=== PATIENT | female | born 1935 | race Caucasian/White ===

== ENCOUNTER → 2016-04-16 | Outpatient (CLI) | payer MEDICARE | LOC: BFHH 14:59 | PROVIDERS: ATTEND Family Medicine | DX: E11.51 Type 2 diabetes mellitus with diabetic peripheral angiopathy without gangrene (principal); E11.311 Type 2 diabetes mellitus with unspecified diabetic retinopathy with macular edema; E11.42 Type 2 diabetes mellitus with diabetic polyneuropathy; Z79.4 Long term (current) use of insulin ==

== ENCOUNTER 2016-05-28 23:44 | Observation (INO) | payer MEDICARE ==
--- NOTE | 2016-05-29 00:26 | ED.PDOC ---
History of Present Illness - General Chief Complaint: Diabetic Complaint Stated Complaint: low blood sugar Time Seen by Provider: 05/29/16 00:23 Source: patient, EMS Exam Limitations: no limitations - History of Present Illness Initial Comments: EMS stated that Ms.Cordie Bowman 80 y/o female with history of diabetes called up police with her medical alert button and on arrival of police she was noted laying on the floor unconscious so ems was then called finger stick blood sugar that was taken showed FSBS-39 mg /dl was found also to be diaphoretic,weak and pale.She was given one ampule of D50 then repeat FSBS-250mg/dl.Patient requested to be seen here at er.She stated she does not have the appetite the last 3 weeks and had just been eating only soup,yogurt and cheese and a lusterer just comes in in am and prepares breakfast for her cereals milk.On her arrival here at er via EMS she could not recall what happened. Timing/Duration: 1-3 hours Severity: moderate Improving Factors: nothing Worsening Factors: nothing Associated Symptoms: weakness Allergies/Adverse Reactions: Allergies Penicillins Allergy (Unknown, Verified 05/29/16 00:30) Statins Allergy (Unknown, Verified 05/29/16 00:30) Home Medications: Ambulatory Orders Donepezil HCl [Aricept] 1 tab PO DAILY 05/01/13 Lisinopril/Hctz 20-25 mg [Zestoretic 20-25 mg] 1 ea PO DAILY 05/01/13 Paroxetine HCl 20 mg PO DAILY 05/01/13 Tramadol HCl 50 mg PO Q4H PRN 05/01/13 Furosemide [Lasix] 40 mg PO BID #0 05/05/13 Albuterol Sulfate Nebs [Proventil Nebs] 2.5 mg INH QID PRN 06/10/15 Aspirin 325 mg PO QD 06/10/15 B-Complex W/Biotin & Folic Aci [Super B-Complex] 1 cap PO DAILY 06/10/15 Magnesium Hydroxide [Milk Of Magnesia] 30 ml PO DAILY PRN 06/10/15 Metformin HCl 1,000 mg PO BIDFD 06/10/15 Montelukast Sodium [Singulair] 10 mg PO DAILY 06/10/15 [place]-3 Fatty Acids [[place]-3 Fish Oil 1200 mg] 1 cap PO DAILY 06/10/15 Solifenacin Succinate [Vesicare] 10 mg PO DAILY 06/10/15 Insulin Aspart [Novolog] 0 unit SC DAILY PRN 01/25/16 Tiotropium [place]-Olodaterol [Stiolto Respimat 2.5-2.5 Mcg/Act] 2 aer IN DAILY 01/25/16 Insulin Degludec [Tresiba Flextouch] 50 unit SC QAM #0 01/27/16 Cholecalciferol [Vitamin D3] 2,000 unit PO DAILY 02/25/16 Multiple Vitamins W/ Minerals [Womens One Daily] 1 tab PO DAILY 02/25/16 Vitamin C 500 mg PO DAILY 02/25/16 diphenhydrAMINE HCL [Benadryl] 25 mg PO PRN 02/25/16 Calcium 1,200 mg PO DAILY 05/29/16 Esomeprazole Magnesium [Nexium] 40 mg PO DAILY 05/29/16 Propranolol HCl 10 mg PO DAILY 05/29/16 Review of Systems - Review of Systems Constitutional: States: see HPI, weakness EENTM: States: no symptoms reported Respiratory: States: no symptoms reported Cardiology: States: no symptoms reported Gastrointestinal/Abdominal: States: no symptoms reported Genitourinary: States: no symptoms reported Musculoskeletal: States: no symptoms reported Skin: States: no symptoms reported Neurological: States: no symptoms reported Endocrine: States: no symptoms reported Hematologic/Lymphatic: States: no symptoms reported Past Medical History (General) - Patient Medical History Hx Seizures: Yes Hx Stroke: Yes Hx Dementia: No Hx Asthma: Yes Hx of COPD: Yes Hx Cardiac Disorders: Yes - [place] Hx Congestive Heart Failure: Yes Hx Pacemaker: No Hx Hypertension: Yes Hx Thyroid Disease: No Hx Diabetes: Yes Hx Cancer: No Hx of HIV: No Hx Hepatitis C: No Hx MRSA: No Surgical History: appendectomy, cholecystectomy, other - hysterectomy, ,bilateral knee replacement - Vaccination History Hx Tetanus, Diphtheria Vaccination: No Hx Influenza Vaccination: Yes Hx Pneumococcal Vaccination: Yes - Social History Hx Tobacco Use: No Hx Chewing Tobacco Use: No Hx Alcohol Use: No Hx Substance Use: No Hx Substance Use Treatment: No Hx Depression: No Feels Threatened In Home Enviroment: No Hx Physical Abuse: No Hx Emotional Abuse: No - Activities of Daily Living Patient Lives Alone: Yes - house Home Health Agency (if applicable): [facility] Agency (if applicable):: None Grooming Ability: Independent Eating (Feeding) Ability: Independent Toileting Ability: Independent - Female History Patient : No Family Medical History - Family History Father Living Status: Hx Family Hypertension: Yes Hx Family Diabetes: Yes Daughter Living Status: Still Living Hx Family Asthma: Yes Hx Family Stroke: Yes Hx Family Cancer: Yes - breast Mother Family History: Unknown Living Status: Age at (years of age): 66 Cause of : CAD Hx Family Hypertension: Yes Physical Exam - Physical Exam General Appearance: Alert, No apparent distress Ears, Nose, Throat: hearing grossly normal, normal ENT inspection, normal pharynx Neck: non-tender, full range of motion, supple, normal inspection Respiratory: chest non-tender, lungs clear, normal breath sounds, no respiratory distress Cardiovascular/Chest: normal peripheral pulses, regular rate, rhythm, no edema, no gallop, no JVD, no murmur Peripheral Pulses: radial,right: 2+, radial,left: 2+, dorsalis pedis,right: 2+, dorsalis pedis,left: 2+ Gastrointestinal/Abdominal: normal bowel sounds, non tender, soft, no organomegaly Extremity: normal range of motion, non-tender, no pedal edema, no calf tenderness, normal capillary refill Neurologic: no motor/sensory deficits, oriented x 3 Skin Exam: normal color, warm/dry Progress - Results/Orders Results/Orders: 05/29/16 00:25 CBC (AUTOMATED) W/AUTO DIFF Stat URINALYSIS Stat 05/29/16 00:30 EKG STAT 05/29/16 02:35 Dex 5% W/NaCl 0.45% 1000ML [D5 1/2NS 1000ml] 1,000 ml IVS .QD Laboratory Results WBC 8.7 K/mm3 (4.8-10.8) 05/29/16 02:00 RBC 4.65 M/mm3 (4.20-5.40) 05/29/16 02:00 Hgb 12.7 gm/dL (12.0-16.0) 05/29/16 02:00 Hct 38.9 % (36.0-47.0) 05/29/16 02:00 MCV 83.7 fl (81.0-99.0) 05/29/16 02:00 MCH 27.2 pg (27.0-31.0) 05/29/16 02:00 MCHC 32.5 g/dL (33.0-37.0) L 05/29/16 02:00 RDW 16.4 % (11.5-14.5) H 05/29/16 02:00 Plt Count 203 K/mm3 (130-400) 05/29/16 02:00 MPV 7.7 fl (7.40-10.4) 05/29/16 02:00 Absolute Neuts (auto) 6.40 K/uL (1.8-6.8) 05/29/16 02:00 Absolute Lymphs (auto) 1.60 K/uL (1.0-3.4) 05/29/16 02:00 Absolute Monos (auto) 0.50 K/uL (0.2-0.8) 05/29/16 02:00 Absolute Eos (auto) 0.20 K/uL (0.0-0.4) 05/29/16 02:00 Absolute Basos (auto) 0.10 K/uL (0.0-0.1) 05/29/16 02:00 Neutrophils % 73.7 % (42.0-78.0) 05/29/16 02:00 Lymphocytes % 18.0 % (20.0-50.0) L 05/29/16 02:00 Monocytes % 5.4 % (2.0-9.0) 05/29/16 02:00 Eosinophils % 2.1 % (1.0-5.0) 05/29/16 02:00 Basophils % 0.8 % (0.0-2.0) 05/29/16 02:00 PT 12.4 SECONDS (9.4-12.5) 05/29/16 02:00 INR 1.100 05/29/16 02:00 PTT (SP) 40.6 SECONDS (25.1-36.5) H 05/29/16 02:00 Sodium 130 mmol/L (135-145) L 05/29/16 02:00 Potassium 3.4 mmol/L (3.6-5.0) L 05/29/16 02:00 Chloride 87 mmol/L (101-111) L 05/29/16 02:00 Carbon Dioxide 32 mmol/L (21-31) H 05/29/16 02:00 Anion Gap 14.4 (12-18) 05/29/16 02:00 BUN 17 mg/dL (7-18) 05/29/16 02:00 Creatinine 0.69 mg/dL (0.6-1.3) 05/29/16 02:00 BUN/Creatinine Ratio 24.6 (10-20) H 05/29/16 02:00 POC Glucose 124 mg/dL (70-105) H 05/29/16 00:21 Random Glucose 64 mg/dL (70-105) L 05/29/16 02:00 Serum Osmolality 260.4 mOsm/L (275-295) L 05/29/16 02:00 Calcium 9.8 mg/dL (8.4-10.2) 05/29/16 02:00 Magnesium 1.3 mg/dL (1.8-2.5) L 05/29/16 02:00 Total Bilirubin 0.9 mg/dL (0.2-1.0) 05/29/16 02:00 AST 31 IU/L (10-42) 05/29/16 02:00 ALT 15 IU/L (10-60) 05/29/16 02:00 Alkaline Phosphatase 63 IU/L (42-121) 05/29/16 02:00 Creatine Kinase 183 IU/L (26-140) H 05/29/16 02:00 CK-MB (CK-2) 9.0 ng/mL (0.0-4.4) H* 05/29/16 02:00 CK-MB (CK-2) % 4.92 % (0.0-4.3) H 05/29/16 02:00 Troponin I 0.02 ng/mL (0.01-0.05) 05/29/16 02:00 Serum Total Protein 8.5 gm/dL (6.4-8.2) H 05/29/16 02:00 Albumin 4.4 g/dl (3.2-5.5) 05/29/16 02:00 Globulin 4.1 gm/dL (2.3-3.5) H 05/29/16 02:00 Albumin/Globulin Ratio 1.1 (1.1-1.9) 05/29/16 02:00 Lipase 31 U/L (22-51) 05/29/16 02:00 - EKG/XRAY/CT EKG: Atrial, Fibrillation Comments: controlled ventricular rate 55/min Departure - Departure Clinical Impression: Altered awareness, transient, Hypoglycemia due to type 2 diabetes mellitus Time of Disposition: 02:56 - D/W 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 Copy, Patient Portal Self Enrollment Home Medications: Ambulatory Orders Donepezil HCl [Aricept] 1 tab PO DAILY 05/01/13 Lisinopril/Hctz 20-25 mg [Zestoretic 20-25 mg] 1 ea PO DAILY 05/01/13 Paroxetine HCl 20 mg PO DAILY 05/01/13 Tramadol HCl 50 mg PO Q4H PRN 05/01/13 Furosemide [Lasix] 40 mg PO BID #0 05/05/13 Albuterol Sulfate Nebs [Proventil Nebs] 2.5 mg INH QID PRN 06/10/15 Aspirin 325 mg PO QD 06/10/15 B-Complex W/Biotin & Folic Aci [Super B-Complex] 1 cap PO DAILY 06/10/15 Magnesium Hydroxide [Milk Of Magnesia] 30 ml PO DAILY PRN 06/10/15 Metformin HCl 1,000 mg PO BIDFD 06/10/15 Montelukast Sodium [Singulair] 10 mg PO DAILY 06/10/15 [place]-3 Fatty Acids [[place]-3 Fish Oil 1200 mg] 1 cap PO DAILY 06/10/15 Solifenacin Succinate [Vesicare] 10 mg PO DAILY 06/10/15 Insulin Aspart [Novolog] 0 unit SC DAILY PRN 01/25/16 Tiotropium [place]-Olodaterol [Stiolto Respimat 2.5-2.5 Mcg/Act] 2 aer IN DAILY 01/25/16 Insulin Degludec [Tresiba Flextouch] 50 unit SC QAM #0 01/27/16 Cholecalciferol [Vitamin D3] 2,000 unit PO DAILY 02/25/16 Multiple Vitamins W/ Minerals [Womens One Daily] 1 tab PO DAILY 02/25/16 Vitamin C 500 mg PO DAILY 02/25/16 diphenhydrAMINE HCL [Benadryl] 25 mg PO PRN 02/25/16 Calcium 1,200 mg PO DAILY 05/29/16 Esomeprazole Magnesium [Nexium] 40 mg PO DAILY 05/29/16 Propranolol HCl 10 mg PO DAILY 05/29/16
[2016-05-29] MEDS ORDERED: SODIUM CHLORIDE 0.9% 500ML 500 ML IVS ONE (00:27)
[2016-05-29] MEDS: DEX 5% W/NACL 0.45% 1000ML 1,000 ML IVS PRN ×3 (02:44→15:53)
--- NOTE | 2016-05-29 03:01 | HP ---
SUPERVISING PHYSICIAN: Cortez Chan M.D. CHIEF COMPLAINT: Low blood sugar. HISTORY OF PRESENT ILLNESS: This is an 80 year-old female patient with a history of diabetes that called the police on her Medic Alert button and when the police arrived to her house she was on the floor unconscious. Her finger stick blood sugars was taken and it was 39. She was also diaphoretic, weak and pale. She was given an amp of D50 and then the repeat blood sugar was 250. She was brought to the Emergency Room. She said she has not had a very good appetite lately and she has not eaten very much over the last several days, and she just had a little bit of soup last night. In the Emergency Room, sodium was 130, potassium 3.4, chloride 87, carbon dioxide 32, BUN 17, creatinine 0.69 , creatinine kinase 183, CK-MB 9. CBC was basically within normal limits. Urine had a trace of leukocyte esterase and some WBCs. Urine WBCs were 5 to 10 with a small amount of urine blood. The patient was admitted to the hospital for observation for hypoglycemia. PAST MEDICAL HISTORY: 1. Chronic diastolic congestive heart failure with an ejection fraction of 55 % from 01/04/15. 2. History of coronary artery disease. 3. Chronic obstructive pulmonary disease. 4. Hypertension. 5. Hyperlipidemia. 6. Generalized arthritis. 7. Type 2 diabetes mellitus on Metformin and Tresiba. 8. History of cerebrovascular accident times three. 9. Iron deficiency anemia. 10. Hyperbilirubinemia. 11. History of myocardial infarction. 12. Peripheral vascular disease. PAST SURGICAL HISTORY: 1. Knee replacement times two. 2. Appendectomy. 3. Cholecystectomy. 4. Hysterectomy. CURRENT MEDICATIONS: Per the EMR and awaiting verification. ALLERGIES: PENICILLINS AND STATINS. CODE STATUS: FULL CODE. FAMILY HISTORY: Noncontributory. SOCIAL HISTORY: She denies any tobacco or illicit drug use. She occasionally drinks an alcoholic beverage. She lives alone. 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 REVIEW OF SYSTEMS: Complains of fatigue. Denies any fever or chills. HEENT: Denies sinus symptoms, sore throat, ear pain or vision changes. RESPIRATORY: Denies coughing, wheezing or shortness of breath. CARDIAC: Denies chest pain, tachycardia or palpitations. ABDOMEN: Denies nausea, vomiting or diarrhea, constipation or abdominal pain. GENITOURINARY: Denies dysuria, hematuria or polyuria. NEUROLOGIC: She complains of weakness but denies dizziness, seizures or headaches. MUSCULOSKELETAL: Complains of arthralgias. Denies myalgias. EXTREMITIES: Denies any edema. SKIN: Denies lesions or rashes. PHYSICAL EXAMINATION: VITAL SIGNS: She is afebrile, heart rate 61, blood pressure 131/67, respiratory rate 18, O2 sat is 94% on 2 liters nasal cannula. GENERAL: This is an 80 year-old female patient who is lying in her hospital bed. She is in no acute distress. HEENT: Normocephalic and atraumatic. Pupils are equal and reactive. Oropharynx is clear. Oral mucous membranes are moist. NECK: Supple without mass. There is no jugular venous distention. CHEST: Essentially clear to auscultation, somewhat diminished at the bases. There is equal rise and fall of the chest with inspiration and expiration. CARDIOVASCULAR: Regular rate and rhythm. ABDOMEN: Soft, obese, nondistended, non-tender. Bowel sounds are positive. EXTREMITIES: No cyanosis, clubbing or edema. NEUROLOGIC: The patient is awake, alert and oriented times three. LABORATORY: As per the History of Present Illness. ASSESSMENT: 1. Hypoglycemia. 2. Diabetes mellitus type 2 presently on Tresiba and Metformin. 3. Altered mental status most likely secondary to number 1. 4. History of congestive heart failure. 5. History of hypertension. 6. Generalized arthritis. PLAN: We will admit the patient for observation. We will monitor her blood sugars. I have spoken with her primary care physician, Dr. Esquivel, and we will decrease her Tresiba from 50 units in the morning to 40 units in the morning. I will also restart her home medications. I will repeat her lab in the morning. Most likely she can be discharged tomorrow if her labs are okay. I will probably sent her home on a lower dose of the Tresiba as she has had a previous hospital admission for the same thing several months ago. Otherwise we will continue to monitor the patient closely and followup as needed. Dr. Chan is the collaborating physician available for consultation. #[id number] [facility]
[2016-05-29] MEDS ORDERED: DEXTROSE 50% 25 GM/50 ML SYG IV PRN ×2 (03:36→20:38)
[2016-05-29] MEDS ORDERED: SODIUM CHLORIDE 0.9% 10 ML VIAL IV PRN (13:06)
[2016-05-29] MEDS ORDERED: SODIUM CHLORIDE 0.9% (FLUSH) 10 ML SYG IV PRN (13:06)
[2016-05-29] MEDS: FUROSEMIDE 40 MG TAB PO SCH (17:18)
[2016-05-29] MEDS: metFORMIN HCL 500 MG TAB PO SCH (20:05)
[2016-05-29] MEDS ORDERED: OMEPRAZOLE CAP 20 MG CAP ONE (20:13)
[2016-05-29] MEDS ORDERED: INSULIN LISPRO 100 UNITS/ML PEN SUBCU ONE (20:13)
[2016-05-29] MEDS ORDERED: GLUCAGON INJ 1 MG VIAL SUBCU PRN (20:38)
[2016-05-29] MEDS: MONTELUKAST SODIUM 10 MG TAB PO SCH (21:12)
[2016-05-29] MEDS: INSULIN LISPRO 100 UNITS/ML PEN SUBCU SCH (21:12)
[2016-05-30] MEDS: ACETAMINOPHEN 325 MG TAB PO PRN ×2 (02:24→18:05)
[2016-05-30] MEDS ORDERED: LISINOPRIL 10 MG TAB ONE (05:29)
[2016-05-30] MEDS ORDERED: TOLTERODINE TARTRATE ER 4 MG CAP PO ONE (05:29)
[2016-05-30] MEDS ORDERED: PARoxetine HCL 20 MG TAB PO ONE (05:30)
[2016-05-30] MEDS ORDERED: DONEPEZIL HCL 5 MG TAB ONE (05:30)
[2016-05-30] MEDS ORDERED: PROPRANOLOL HCL 20 MG TAB ONE (05:30)
[2016-05-30] MEDS ORDERED: hydroCHLOROthiazide 25 MG TAB ONE (05:30)
[2016-05-30] MEDS: OMEPRAZOLE CAP 20 MG CAP PO SCH (06:08)
[2016-05-30] MEDS: INSULIN LISPRO 100 UNITS/ML PEN SUBCU SCH ×4 (07:10→21:22)
[2016-05-30] MEDS: metFORMIN HCL 500 MG TAB PO SCH ×2 (07:54→17:19)
[2016-05-30] MEDS ORDERED: LISINOPRIL PO SCH (09:00)
[2016-05-30] MEDS ORDERED: IV SET AND CAP CHANGE INJ INJ SCH (09:00)
[2016-05-30] MEDS ORDERED: INSULIN DEGLUDEC 40 UNIT SC SCH (09:00)
[2016-05-30] MEDS ORDERED: HCTZ PO SCH (09:00)
[2016-05-30] MEDS ORDERED: NON-FORMULARY MEDICATION 1 EA MIS (Solifenacin Succinate [Vesicare] 10 MG) PO SCH (09:00)
[2016-05-30] MEDS ORDERED: NON-FORMULARY MEDICATION 1 EA MIS (Esomeprazole Magnesium [Nexium] 40 MG) PO SCH (09:00)
[2016-05-30] MEDS: PROPRANOLOL HCL 20 MG TAB PO SCH (09:06)
[2016-05-30] MEDS: hydroCHLOROthiazide 25 MG TAB PO SCH (09:07)
[2016-05-30] MEDS: TOLTERODINE TARTRATE ER 4 MG CAP PO SCH (09:07)
[2016-05-30] MEDS: FUROSEMIDE 40 MG TAB PO SCH ×2 (09:07→17:19)
[2016-05-30] MEDS: LISINOPRIL 10 MG TAB PO SCH (09:07)
[2016-05-30] MEDS: PARoxetine HCL 20 MG TAB PO SCH (09:07)
[2016-05-30] MEDS: SODIUM CHLORIDE 0.9% (FLUSH) 10 ML SYG IV SCH ×2 (09:08→20:46)
[2016-05-30] MEDS: DONEPEZIL HCL 5 MG TAB PO SCH (09:19)
--- NOTE | 2016-05-30 13:37 | PN ---
DATE: 05/30/16 SUPERVISING PHYSICIAN: Cortez Chan M.D. SUBJECTIVE: The patient is sitting up in her hospital bed. She is visiting with her daughter. She has no complaints of chest pain, shortness of breath, nausea or vomiting, diarrhea or constipation, dizziness or weakness. Her daughter reports that she is much more alert and is concerned somewhat that since she started the Tresiba her blood sugars have been lower than normal in spite of decreasing the dosage. OBJECTIVE: VITAL SIGNS: She is afebrile, blood pressure 133/71, heart rate 71 , respiratory rate 18, O2 sat 93%. RESPIRATORY: She is essentially clear to auscultation bilaterally. CARDIAC: Regular rate and rhythm. ABDOMEN: Soft, nondistended, non-tender. Bowel sounds are positive. EXTREMITIES: No cyanosis , clubbing or edema. SKIN: She does have a slightly ecchymotic bruise on her right lower eyelid. She states she does not remember hitting her head but it is very slightly ecchymotic along the lower right cheek bone. NEUROLOGIC: She is awake, alert and oriented times three. LABORATORY: CBC is basically within normal limits. Sodium 128, potassium 3.6, chloride 88. Blood sugars have run between 111 and 275. All other labs and films have been reviewed via the EMR. ASSESSMENT: 1. Hypoglycemia that is resolved. 2. Hyponatremia. 3. Diabetes mellitus type 2 presently on Tresiba and Metformin. 4. Altered mental status most likely secondary to number 1 but the hyponatremia may have contributed. 5. History of congestive heart failure of unknown etiology. 6. History of hypertension. 7. Generalized arthritis. PLAN: We will continue present care. I have decreased her Tresiba to 40 units every morning. She had been getting 50. I have also placed her on fluid restriction. We will monitor her sugars overnight. I will check her labs in the morning and if at that point she can be discharged with close followup in the clinic with either me or Dr. Esquivel. We will need chemistries done when she has her followup. Dr. Chan is the collaborating physician available fo consultation. #[id number] [facility]ITAL[facility]ly[facility]
[2016-05-30] MEDS: NON-FORMULARY MEDICATION 1 EA MIS (Tiotropium Bromide-Olodaterol [Stiolto Respimat 2.5-2.5 INH SCH (17:38)
--- NOTE | 2016-05-30 18:41 | PCM.CORE ---
Physician DVT/VTE - Nurse DVT Assessment & Total Each Risk Factor Represents 3 Points: Age over 75 years, Hx of DVT/PE, Medical PT with Hx of PR, CHF, Severe infection/sepsis Each Risk Factor Represents 1 Point: Medical PT at Bed Rest Each Risk Factor is 1 Point: Varicose Veins/Edema Legs, Obesity (BMI >25), Serious Lung disease (pnemonia <1month, COPD, emphysema,etc) DVT Assessment Score: 13 - 5 or more Very High Risk Treatments: Early Ambulation *, Sequential Compression Device Pharmacological: Enoxaparin 40mg SQ Daily
[2016-05-30] MEDS: MONTELUKAST SODIUM 10 MG TAB PO SCH (20:45)
[2016-05-31] MEDS: OMEPRAZOLE CAP 20 MG CAP PO SCH (06:05)
[2016-05-31] MEDS: INSULIN LISPRO 100 UNITS/ML PEN SUBCU SCH ×2 (07:36→12:14)
[2016-05-31] MEDS: metFORMIN HCL 500 MG TAB PO SCH (07:46)
[2016-05-31] MEDS ORDERED: INSULIN DEGLUDEC 35 UNIT SC SCH (08:23)
[2016-05-31] MEDS: PROPRANOLOL HCL 20 MG TAB PO SCH (08:36)
[2016-05-31] MEDS: DONEPEZIL HCL 5 MG TAB PO SCH (08:37)
[2016-05-31] MEDS: PARoxetine HCL 20 MG TAB PO SCH (08:37)
[2016-05-31] MEDS: FUROSEMIDE 40 MG TAB PO SCH (08:37)
[2016-05-31] MEDS: LISINOPRIL 10 MG TAB PO SCH (08:38)
[2016-05-31] MEDS: TOLTERODINE TARTRATE ER 4 MG CAP PO SCH (08:38)
[2016-05-31] MEDS: hydroCHLOROthiazide 25 MG TAB PO SCH (08:38)
[2016-05-31] MEDS ORDERED: INSULIN DEGLUDEC 34 UNIT SC SCH (08:59)
[2016-05-31] MEDS: SODIUM CHLORIDE 0.9% (FLUSH) 10 ML SYG IV SCH (09:10)
[2016-05-31] MEDS: NON-FORMULARY MEDICATION 1 EA MIS (Tiotropium Bromide-Olodaterol [Stiolto Respimat 2.5-2.5 INH SCH (10:04)
[2016-05-31] MEDS ORDERED: NYSTATIN POWDER 15GM BTTL TOP ONE (13:14)
[2016-05-31 14:49] VITALS: BP 107/73; TEMP 97.9; O2SAT 96
[2016-05-31] MEDS ORDERED: NYSTATIN POWDER 15GM BTTL TOP SCH (17:00)
--- NOTE | 2016-05-31 17:12 | DS ---
DISCHARGE DIAGNOSIS: 1. Significant hypoglycemic episode symptomatic with altered level of consciousness. 2. Significant hyponatremia possibly related to free water overload from polydipsia with supportive intervention started. 3. Chronic diabetes mellitus type 2 on Tresiba insulin once daily and Metformin for control. 4. Altered mental status most likely secondary to significant hypoglycemia with associated hyponatremia showing improvement. 5. History of congestive heart failure of undetermined etiology. 6. History of hypertension. 7. History of generalized arthritis probable degenerative in nature. HISTORY OF PRESENT ILLNESS: This 80 year-old white female was admitted to the hospital because of fairly sudden loss of consciousness. She pressed her Medic Alert button before she lost consciousness completely and when the police and EMS found her, she was on the floor unconscious. Her sugar was in the 30s and she required an amp of D50 and repeat blood sugar was 250. She was brought to the Emergency Room and was admitted to the hospital where she was found to also have a significantly low sodium requiring intervention with fluid restrictions and gentle diuresis. She had a urine that showed some evidence of pyuria and she was admitted to the hospital for stabilization of the diabetes and for alteration of her dosing to assist with improved control of that diabetes. LABORATORY: White count was 6,000 on discharge, hemoglobin 10.3, INR of 1.1. Chemistries show sodium 127, potassium 3.7, BUN 15, creatinine 0.89. Fasting glucose was 142 at discharge while serum osmolality was low at 258. Magnesium was 1.3. Troponin was 0.02. CK was 183 possibly from lying on the floor. Albumin 4.4. Urine shows hematuria and pyuria. Urine culture revealed no growth after 48 hours. HOSPITAL COURSE: The patient was feeling much improved at the time of discharge. Her appetite is significantly increased. Her Tresiba concentrated long-acting insulin dose had dropped from 50 to 40 by the day prior to discharge and on the day of discharge it was down to 34 units. This dosage of insulin will need to be adjusted based upon her ongoing diabetic management decision process. PLAN: The patient was very much ready and willing to continue with outpatient therapy on the day of discharge. She will have followup with Dr. Esquivel or with Lu Castillo, Nurse Practitioner, later this week. She is to closely monitor and adjust the Tresiba insulin to control the diabetes. Start with 34 units every morning and then adjust to control glucose with Dr. Esquivel's input. Limit the intake of water to less than 1-1/2 quarts daily in an attempt to increase the salt in the blood. Have the blood tested for electrolytes at her next clinic visit. Stay active. Special attention to avoid falls. Return if not improving. #[id number] MTDD
== END 2016-05-31 15:35 | disposition home or self-care (01) ==
LOC: ER 23:44 → MS 05-29 03:00
PROVIDERS: ADMIT Family Medicine; ATTEND Family Medicine
DX: E11.649 Type 2 diabetes mellitus with hypoglycemia without coma (principal); E87.1 Hypo-osmolality and hyponatremia; R41.82 Altered mental status, unspecified; I50.32 Chronic diastolic (congestive) heart failure; I10 Essential (primary) hypertension; M19.90 Unspecified osteoarthritis, unspecified site; I25.10 Atherosclerotic heart disease of native coronary artery without angina pectoris; J44.9 Chronic obstructive pulmonary disease, unspecified; E78.5 Hyperlipidemia, unspecified; I25.2 Old myocardial infarction; I73.9 Peripheral vascular disease, unspecified; Z79.4 Long term (current) use of insulin; Z79.84 Long term (current) use of oral hypoglycemic drugs; Z79.82 Long term (current) use of aspirin; Z79.899 Other long term (current) drug therapy; Z88.0 Allergy status to penicillin; Z88.8 Allergy status to other drugs, medicaments and biological substances; Z86.73 Personal history of transient ischemic attack (TIA), and cerebral infarction without residual deficits; Z86.2 Personal history of diseases of the blood and blood-forming organs and certain disorders involving the immune mechanism; Z90.49 Acquired absence of other specified parts of digestive tract; Z90.710 Acquired absence of both cervix and uterus; Z60.2 Problems related to living alone
CPT/HCPCS: 36415 ×3; 36416 ×7; 80048 ×3; 80053; 81001; 82550; 82553; 82947; 82948 ×14; 83690; 84484; 85025 ×2; 85610; 85730; 87086; 93005; 94760 ×6; 96361 ×2; 96372 ×2; 96374; 99284; J1815; J7040; J7799 ×3

== ENCOUNTER 2016-06-04 14:31 | Inpatient (IN) | payer MEDICARE ==
[2016-06-04] MEDS ORDERED: SODIUM CHLORIDE 0.9% (FLUSH) 10 ML SYG IV PRN (15:27)
--- NOTE | 2016-06-04 16:52 | RAD ---
EXAM DESCRIPTION: Chest,1 View CLINICAL HISTORY: weakness COMPARISON: 26 February 2016 TECHNIQUE: AP portable chest FINDINGS: Cardiomegaly is evident. Mitral annular calcification is noted. The lungs are free of acute infiltrate. No pleural fluid is seen. IMPRESSION: Cardiomegaly is observed without evidence of congestive heart failure. I see no acute cardiac pulmonary pathology. Electronically signed by: Rodolfo Castillo MD 06/04/2016 4:51 PM [employer]PERATIONS EXPERT
--- NOTE | 2016-06-04 18:41 | ED.PDOC ---
History of Present Illness - General Chief Complaint: General Stated Complaint: weakness Time Seen by Provider: 06/04/16 15:26 Source: patient Exam Limitations: no limitations - History of Present Illness Initial Comments: 80 YO FEMALE WHO PRESENTS TO THE ED WITH COMPLAINTS OF GENERALIZED WEAKNESS AND CHRONIC BACK PAIN. PT LIVES AT HOME ALONE AND FEELS THAT SHE IS UNABLE TO CARE FOR HERSELF DUE TO SYMPTOMS. PT WAS RECENTLY ADMITTED FOR HYPOGLYCEMIA AND HYPONATREMIA AND STATES THAT SHE HAS BEEN IN COMPLIANCE WITH FLUID RESTRICTION. Timing/Duration: getting worse Severity: moderate Improving Factors: immobilization Worsening Factors: movement Associated Symptoms: weakness Allergies/Adverse Reactions: Allergies Penicillins Allergy (Unknown, Verified 05/29/16 00:30) Statins Allergy (Unknown, Verified 05/29/16 00:30) Home Medications: Ambulatory Orders Donepezil HCl [Aricept] 1 tab PO DAILY 05/01/13 Lisinopril/Hctz 20-25 mg [Zestoretic 20-25 mg] 1 ea PO DAILY 05/01/13 Paroxetine HCl 20 mg PO DAILY 05/01/13 Tramadol HCl 50 mg PO Q4H PRN 05/01/13 Furosemide [Lasix] 40 mg PO BID #0 05/05/13 Albuterol Sulfate Nebs [Proventil Nebs] 2.5 mg INH QID PRN 06/10/15 Aspirin 325 mg PO QD 06/10/15 B-Complex W/Biotin & Folic Aci [Super B-Complex] 1 cap PO DAILY 06/10/15 Magnesium Hydroxide [Milk Of Magnesia] 30 ml PO DAILY PRN 06/10/15 Metformin HCl 1,000 mg PO BIDFD 06/10/15 Montelukast Sodium [Singulair] 10 mg PO DAILY 06/10/15 Sadler-3 Fatty Acids [Sadler-3 Fish Oil 1200 mg] 1 cap PO DAILY 06/10/15 Solifenacin Succinate [Vesicare] 10 mg PO DAILY 06/10/15 Insulin Aspart [Novolog] 0 unit SC DAILY PRN 01/25/16 Tiotropium [place]-Olodaterol [Stiolto Respimat 2.5-2.5 Mcg/Act] 2 aer IN DAILY 01/25/16 Cholecalciferol [Vitamin D3] 2,000 unit PO DAILY 02/25/16 Multiple Vitamins W/ Minerals [Womens One Daily] 1 tab PO DAILY 02/25/16 Vitamin C 500 mg PO DAILY 02/25/16 diphenhydrAMINE HCL [Benadryl] 25 mg PO PRN 02/25/16 Calcium 1,200 mg PO DAILY 05/29/16 Esomeprazole Magnesium [Nexium] 40 mg PO DAILY 05/29/16 Propranolol HCl 10 mg PO DAILY 05/29/16 Insulin Degludec [Tresiba Flextouch] 34 unit SC QAM #0 05/31/16 Review of Systems - Review of Systems Constitutional: States: malaise. Denies: chills, fever EENTM: Denies: ear pain, throat pain Respiratory: Denies: cough, short of breath Cardiology: Denies: chest pain, palpitations Gastrointestinal/Abdominal: Denies: diarrhea, nausea Genitourinary: Denies: dysuria, frequency Musculoskeletal: States: see HPI, back pain. Denies: joint pain, joint swelling Neurological: States: see HPI, weakness. Denies: numbness, paresthesia Endocrine: States: no symptoms reported Hematologic/Lymphatic: States: no symptoms reported Past Medical History (General) - Patient Medical History Hx Seizures: Yes Hx Stroke: Yes Hx Dementia: No Hx Asthma: Yes Hx of COPD: Yes Hx Cardiac Disorders: Yes - [place] Hx Congestive Heart Failure: Yes Hx Pacemaker: No Hx Hypertension: Yes Hx Thyroid Disease: No Hx Diabetes: Yes Hx Cancer: No Hx of HIV: No Hx Hepatitis C: No Hx MRSA: No Surgical History: appendectomy, cholecystectomy, other - Vaccination History Hx Tetanus, Diphtheria Vaccination: No Hx Influenza Vaccination: Yes Hx Pneumococcal Vaccination: Yes - Social History Hx Tobacco Use: No Hx Chewing Tobacco Use: No Hx Alcohol Use: No Hx Substance Use: No Hx Substance Use Treatment: No Hx Depression: No Hx Physical Abuse: No Hx Emotional Abuse: No - Female History Patient : No Family Medical History - Family History Father Living Status: Hx Family Hypertension: Yes Hx Family Diabetes: Yes Daughter Living Status: Still Living Hx Family Asthma: Yes Hx Family Stroke: Yes Hx Family Cancer: Yes - breast Mother Family History: Unknown Living Status: Age at (years of age): 66 Cause of : CAD Hx Family Hypertension: Yes Physical Exam - Physical Exam General Appearance: Alert, Comfortable, No apparent distress Ears, Nose, Throat: hearing grossly normal, normal ENT inspection Neck: non-tender, full range of motion Respiratory: lungs clear, normal breath sounds Cardiovascular/Chest: regular rate, rhythm, no murmur Gastrointestinal/Abdominal: normal bowel sounds, non tender, soft Back Exam: normal inspection, no CVA tenderness Extremity: non-tender, normal inspection Neurologic: alert, normal mood/affect, oriented x 3 Skin Exam: normal color, warm/dry Progress - Progress Progress: 06/04/16 18:46 PT RESTING COMFORTABLY LABS DISCUSSED. WITH ADMIT FOR POSSIBLE REHAB/HALFWAY PLACEMENT. - EKG/XRAY/CT EKG: Fibrillation - 78BPM, , RBBB - NL AXIS, , no ST T wave changes - COMPARED WITH 05/29/16 Xray Comments: CXR: CARDIOMEGALY WITHOUT FAILURE PER RAD Departure - Departure Clinical Impression: Hyponatremia, Generalized weakness, Failure to thrive in adult Time of Disposition: 18:49 Disposition: Admit Patient Condition: Fair Departure Forms: ED Discharge - Pt. Copy, Patient Portal Self Enrollment Home Medications: Ambulatory Orders Donepezil HCl [Aricept] 1 tab PO DAILY 05/01/13 Lisinopril/Hctz 20-25 mg [Zestoretic 20-25 mg] 1 ea PO DAILY 05/01/13 Paroxetine HCl 20 mg PO DAILY 05/01/13 Tramadol HCl 50 mg PO Q4H PRN 05/01/13 Furosemide [Lasix] 40 mg PO BID #0 05/05/13 Albuterol Sulfate Nebs [Proventil Nebs] 2.5 mg INH QID PRN 06/10/15 Aspirin 325 mg PO QD 06/10/15 B-Complex W/Biotin & Folic Aci [Super B-Complex] 1 cap PO DAILY 06/10/15 Magnesium Hydroxide [Milk Of Magnesia] 30 ml PO DAILY PRN 06/10/15 Metformin HCl 1,000 mg PO BIDFD 06/10/15 Montelukast Sodium [Singulair] 10 mg PO DAILY 06/10/15 Sadler-3 Fatty Acids [Sadler-3 Fish Oil 1200 mg] 1 cap PO DAILY 06/10/15 Solifenacin Succinate [Vesicare] 10 mg PO DAILY 06/10/15 Insulin Aspart [Novolog] 0 unit SC DAILY PRN 01/25/16 Tiotropium [place]-Olodaterol [Stiolto Respimat 2.5-2.5 Mcg/Act] 2 aer IN DAILY 01/25/16 Cholecalciferol [Vitamin D3] 2,000 unit PO DAILY 02/25/16 Multiple Vitamins W/ Minerals [Womens One Daily] 1 tab PO DAILY 02/25/16 Vitamin C 500 mg PO DAILY 02/25/16 diphenhydrAMINE HCL [Benadryl] 25 mg PO PRN 02/25/16 Calcium 1,200 mg PO DAILY 05/29/16 Esomeprazole Magnesium [Nexium] 40 mg PO DAILY 05/29/16 Propranolol HCl 10 mg PO DAILY 05/29/16 Insulin Degludec [Tresiba Flextouch] 34 unit IN QAM #0 05/31/16 Decision To Admit - Decistion To Admit Decision to Admit Reason: Admit from ER Decision to Admit Date: 06/04/16 - CASE DISCUSSED WITH JESSE OCASIO NP WHO AGREES TO ADMIT Decision to Admit Time: 18:50
--- NOTE | 2016-06-04 21:27 | HP ---
SUPERVISING PHYSICIAN: KEVIN WASSERMAN MD CHIEF COMPLAINT: Extreme weakness. HISTORY OF PRESENT ILLNESS: This is an 80 year-old female patient who presented to the Emergency Room today with complaints of generalized weakness and chronic back pain. She lives at home alone. Today, she said she could not even get up to get to the bathroom by herself. She is legally blind and she hurt all over. She said she could not even get herself up to use her walker and she was actually very scared. She stated she cannot get her walker into her bathroom and she is completely unable to take care of herself. Last week she was actually admitted to the hospital for a hypoglycemic event and she had been admitted to the hospital. She has been admitted to the hospital for multiple falls over the past year. In the Emergency Room, her chest x-ray shows cardiomegaly without evidence of congestive heart failure and no cardiac pulmonary pathology. Her lab showed a hemoglobin of 11.2 and hematocrit of 34.6. Her sodium was 126 , chloride 83, anion gap 19.1, random glucose 115. Serum osmolality 255.1, direct bilirubin 0.3, AST 44. Her urine was basically within normal limits. I was called for hospital admission. PAST MEDICAL HISTORY: 1. Chronic diastolic congestive heart failure with an ejection fraction of 55% from 01/04/15. 2. Coronary artery disease. 3. Chronic obstructive pulmonary disease. 4. Hypertension. 5. Hyperlipidemia. 6. Generalized arthritis. 7. Type 2 diabetes mellitus on metformin and Tresiba. 8. History of cerebrovascular accident x3. 9. Iron-deficiency anemia. 10. Hyperbilirubinemia. 11. History of myocardial infarction. 12. Peripheral vascular disease. PAST SURGICAL HISTORY: 1, Knee replacement x2. 2. Appendectomy. 3. Cholecystectomy. 4. Hysterectomy. CURRENT MEDICATIONS: Per the EMR and awaiting verification. ALLERGIES: PENICILLIN AND STATINS. CODE STATUS: FULL CODE. FAMILY HISTORY: Noncontributory. SOCIAL HISTORY: She lives alone. She denies any ETOH or tobacco use. She has been on [facility]. REVIEW OF SYSTEMS: GENERAL: She complains of extreme fatigue and weakness as well as weight loss of unknown amount over the last year or two. She denies any fever or chills. HEENT: Denies sinus symptoms, sore throat or ear pain. RESPIRATORY: Denies coughing, wheezing or shortness of breath. CARDIAC: Denies chest pain, tachycardia or palpitations. ABDOMEN: Denies nausea, vomiting or diarrhea, constipation or abdominal pain. GENITOURINARY: Denies dysuria, hematuria or polyuria. NEUROLOGICAL: She complains of extreme weakness but denies dizziness, headaches or seizures. MUSCULOSKELETAL: Complains of musculoskeletal weakness as well as back pain. PHYSICAL EXAMINATION: VITAL SIGNS: She is afebrile. Heart rate 70, blood pressure 157/67, respiratory rate 16, 02 saturation 95% on room air. GENERAL: This is an 80 year-old female patient who is lying in her hospital bed. She is in no acute distress. HEENT: Normocephalic and atraumatic. Oropharynx is clear. Oral mucous membranes are moist. NECK: Supple without mass. CHEST: Essentially clear to auscultation. There is equal rise and fall of the chest with inspiration and expiration. CARDIOVASCULAR: Regular rate and rhythm. ABDOMEN: Soft, obese, nondistended, non-tender. Bowel sounds are positive. EXTREMITIES: No cyanosis, clubbing, or edema. NEUROLOGIC: She is awake, alert, and oriented x3. Lab and films are as per the history of present illness. ASSESSMENT: 1, Hyponatremia.. 2. Extreme weakness. 3. Legally blind. 4. Congestive heart failure with diastolic etiology and ejection fraction of 55 % in December of 2014. 5. Hypertension. 6. Chronic obstructive pulmonary disease. PLAN: We will admit patient for observation. I will get Research Group Director involved on her discharge planning. We will monitor her blood sugars including putting her on sliding scale insulin. I will resume her previous home medications. She will also be put on fluid restrictions. Will check her lab in the morning. Will give her breathing treatments as well as pulmonary hygiene. Will continue to monitor the patient closely. Followup as needed. Dr. Wasserman is the collaborating physician and available for consultation. #[id number] [facility]ly[facility]
[2016-06-04] MEDS ORDERED: DEXTROSE 50% 25 GM/50 ML SYG IV PRN (22:46)
[2016-06-04] MEDS ORDERED: GLUCAGON INJ 1 MG VIAL SUBCU PRN (22:46)
--- NOTE | 2016-06-04 22:48 | PCM.CORE ---
Physician DVT/VTE - Prophylaxis Currently: Patient already on anticoagulation therapy - 5 or more Very High Risk Treatments: Early Ambulation *, Sequential Compression Device
[2016-06-04] MEDS ORDERED: ALBUTEROL SULFATE 2.5 MG/3 ML VIAL NEB PRN (22:58)
[2016-06-04] MEDS ORDERED: ENOXAPARIN SODIUM 40 MG/0.4 ML SYG SUBCU SCH (23:00)
[2016-06-04] MEDS ORDERED: IV SET AND CAP CHANGE INJ INJ SCH (23:00)
[2016-06-04] MEDS ORDERED: PANTOPRAZOLE SODIUM IV 40 MG VIAL IV SCH (23:00)
[2016-06-05] MEDS ORDERED: SODIUM CHLORIDE 0.9% 10 ML VIAL ONE (01:19)
[2016-06-05] MEDS: MONTELUKAST SODIUM 10 MG TAB PO SCH ×2 (01:30→20:33)
[2016-06-05] MEDS: INSULIN LISPRO 100 UNITS/ML PEN SUBCU SCH ×4 (08:00→21:31)
[2016-06-05] MEDS ORDERED: POTASSIUM CHLORIDE 20 MEQ TAB PO ONE (08:34)
[2016-06-05] MEDS ORDERED: SODIUM CHLORIDE 0.9% 10 ML VIAL IV PRN (08:38)
[2016-06-05] MEDS: metFORMIN HCL 500 MG TAB PO SCH ×2 (08:39→17:51)
[2016-06-05] MEDS ORDERED: LISINOPRIL PO SCH (09:00)
[2016-06-05] MEDS ORDERED: NON-FORMULARY MEDICATION 1 EA MIS (Solifenacin Succinate [Vesicare] 10 MG) PO SCH (09:00)
[2016-06-05] MEDS ORDERED: HCTZ PO SCH (09:00)
[2016-06-05] MEDS: NON-FORMULARY MEDICATION 1 EA MIS (Tiotropium Bromide-Olodaterol [Stiolto Respimat 2.5-2.5 IN SCH (09:15)
[2016-06-05] MEDS: PROPRANOLOL HCL 20 MG TAB PO SCH (09:44)
[2016-06-05] MEDS: hydroCHLOROthiazide 25 MG TAB PO SCH (09:46)
[2016-06-05] MEDS: TOLTERODINE TARTRATE ER 4 MG CAP PO SCH (09:46)
[2016-06-05] MEDS: LISINOPRIL 10 MG TAB PO SCH (09:46)
[2016-06-05] MEDS: DONEPEZIL HCL 5 MG TAB PO SCH (09:47)
[2016-06-05] MEDS: FUROSEMIDE 40 MG TAB PO SCH ×2 (09:47→17:51)
[2016-06-05] MEDS: PARoxetine HCL 20 MG TAB PO SCH (09:47)
[2016-06-05] MEDS: INSULIN DEGLUDEC 34 UNIT SC SCH (09:55)
--- NOTE | 2016-06-05 18:57 | PN ---
DATE: 06/05/16 SUPERVISING PHYSICIAN: Cuco Sharp M.D. SUBJECTIVE: The patient is sitting up in her bed. She is eating her meal. She denies any chest pain, shortness of breath, nausea, vomiting or diarrhea. She is very excited that she is going to be discharged to [facility] because she said she has been really scared to go home. OBJECTIVE: VITAL SIGNS: Afebrile, heart rate 71, blood pressure 120/64, respiratory rate 16, O2 sat is 94%. RESPIRATORY: Essentially clear to auscultation bilaterally. HEART: Regular rate and rhythm. ABDOMEN: Soft, nondistended, non-tender. Bowel sounds are positive. NEUROLOGIC: She is awake , alert and oriented times three. LABORATORY: WBCs are 6, hemoglobin 10.4, hematocrit 32.1. Sodium was 126 yesterday and today it is 128, potassium 3.5, chloride 86, carbon dioxide 33, serum osmolality 259.3. BNP 140. All other labs and films have been reviewed via the EMR. ASSESSMENT: 1. Hyponatremia that is slightly improving. 2. Hypokalemia. She has received potassium supplementation today. 3. Extreme weakness. 4. Legally blind. 5. Congestive heart failure with diastolic etiology and an ejection fraction of 55% in December 2014. 6. Hypertension. 7. Chronic obstructive pulmonary disease. PLAN: We will continue present supportive care. She has received some potassium supplementation. Tomorrow will also do an ambulatory study to see if she requires oxygen when she is discharged to the intermediate. I have also consulted Physical Therapy. I have done a repeat of her labs in the morning. She is to continue on fluid restrictions. Aby Negrete, our Assistant Purchasing Manager, has initiated her being discharged to [facility]. Will continue to encourage good pulmonary hygiene. I started her on Protonix for ulcer prophylaxis as well as Lovenox for DVT prophylaxis. Will continue to monitor her closely and followup as needed. Dr. Sharp is the collaborating physician available for consultation. #[id number] [facility]
[2016-06-05] MEDS: traMADol HCL 50 MG TAB PO PRN (20:33)
[2016-06-05] MEDS: ENOXAPARIN SODIUM 40 MG/0.4 ML SYG SUBCU SCH (20:34)
[2016-06-05] MEDS: PANTOPRAZOLE SODIUM IV 40 MG VIAL IV SCH (20:34)
[2016-06-05] MEDS: SODIUM CHLORIDE 0.9% (FLUSH) 10 ML SYG IV PRN (20:35)
[2016-06-06] MEDS: traMADol HCL 50 MG TAB PO PRN ×2 (00:44→21:32)
[2016-06-06] MEDS: PROPRANOLOL HCL 20 MG TAB PO SCH (08:21)
[2016-06-06] MEDS: TOLTERODINE TARTRATE ER 4 MG CAP PO SCH (08:21)
[2016-06-06] MEDS: metFORMIN HCL 500 MG TAB PO SCH ×2 (08:22→16:32)
[2016-06-06] MEDS: LISINOPRIL 10 MG TAB PO SCH (08:22)
[2016-06-06] MEDS: hydroCHLOROthiazide 25 MG TAB PO SCH (08:22)
[2016-06-06] MEDS: INSULIN LISPRO 100 UNITS/ML PEN SUBCU SCH ×4 (08:22→21:35)
[2016-06-06] MEDS: PARoxetine HCL 20 MG TAB PO SCH (08:22)
[2016-06-06] MEDS: DONEPEZIL HCL 5 MG TAB PO SCH (08:22)
[2016-06-06] MEDS: FUROSEMIDE 40 MG TAB PO SCH ×2 (08:22→16:32)
[2016-06-06] MEDS: INSULIN DEGLUDEC 34 UNIT SC SCH (08:45)
[2016-06-06] MEDS: NON-FORMULARY MEDICATION 1 EA MIS (Tiotropium Bromide-Olodaterol [Stiolto Respimat 2.5-2.5 IN SCH (10:15)
--- NOTE | 2016-06-06 14:10 | PN ---
DATE: 06/06/16 SUPERVISING PHYSICIAN: Cuco Sharp M.D. SUBJECTIVE: The patient is sitting up in her chair in her room. She is asleep. She awakens easily. She has no complaints of shortness of breath, chest pain, nausea or vomiting. She is looking forward to being discharged to [facility]. We discussed at length her fluid restrictions. She says she is trying to limit her fluids. OBJECTIVE: VITAL SIGNS: She is afebrile, heart rate 68, blood pressure 119/69, respiratory rate 20, O2 sat 94%. RESPIRATORY: Essentially clear to auscultation bilaterally. CARDIAC: Regular rate and rhythm. ABDOMEN: Soft, nondistended, non-tender. Bowel sounds are positive. NEUROLOGIC: She is awake , alert and oriented times three. LABORATORY: Hemoglobin and hematocrit are stable at 10.7 and 32.8. Sodium continues at 128, chloride 86, carbon dioxide 32. Blood sugars are between 84 and 169. All other labs and films have been reviewed via the EMR. ASSESSMENT: 1. Hyponatremia that continues at 128, although her baseline is about 128 to 130. Continue encouraging her fluid restrictions. 2. Hypokalemia that has resolved. 3. Extreme weakness. 4. Legally blind. 5. Congestive heart failure with diastolic etiology and an ejection fraction of 55% from December 2014. 6. Hypertension. 7. Chronic obstructive pulmonary disease. PLAN: We will continue present supportive care. I will again check her sodium in the morning. Hopefully she can be discharged to [facility] tomorrow. She will need physical therapy at [facility]. In the meantime we will continue to encourage good pulmonary toilet and frequent ambulation. We will continue to follow her medically and followup as needed. Dr. Sharp is the collaborating physician available for consultation. #[id number] [facility]
[2016-06-06] MEDS: NYSTATIN POWDER 15GM BTTL TOP SCH ×2 (16:32→21:35)
[2016-06-06] MEDS: ENOXAPARIN SODIUM 40 MG/0.4 ML SYG SUBCU SCH (21:30)
[2016-06-06] MEDS: PANTOPRAZOLE SODIUM IV 40 MG VIAL IV SCH (21:31)
[2016-06-06] MEDS: SODIUM CHLORIDE 0.9% (FLUSH) 10 ML SYG IV PRN (21:31)
[2016-06-06] MEDS: MONTELUKAST SODIUM 10 MG TAB PO SCH (21:32)
[2016-06-07] MEDS: INSULIN LISPRO 100 UNITS/ML PEN SUBCU SCH ×4 (07:12→21:30)
[2016-06-07] MEDS: metFORMIN HCL 500 MG TAB PO SCH ×2 (07:49→16:34)
[2016-06-07] MEDS: FUROSEMIDE 40 MG TAB PO SCH ×2 (09:25→16:34)
[2016-06-07] MEDS: LISINOPRIL 10 MG TAB PO SCH (09:25)
[2016-06-07] MEDS: DONEPEZIL HCL 5 MG TAB PO SCH (09:25)
[2016-06-07] MEDS: PARoxetine HCL 20 MG TAB PO SCH (09:25)
[2016-06-07] MEDS: PROPRANOLOL HCL 20 MG TAB PO SCH (09:25)
[2016-06-07] MEDS: TOLTERODINE TARTRATE ER 4 MG CAP PO SCH (09:25)
[2016-06-07] MEDS: NYSTATIN POWDER 15GM BTTL TOP SCH ×4 (09:26→21:05)
[2016-06-07] MEDS: INSULIN DEGLUDEC 34 UNIT SC SCH (09:27)
[2016-06-07] MEDS ORDERED: SOD CHL 3% *HYPERTONIC* 500ML 300 ML IVS ONE (09:53)
[2016-06-07] MEDS ORDERED: POTASSIUM CHLORIDE 20 MEQ TAB PO ONE (09:56)
[2016-06-07] MEDS ORDERED: FUROSEMIDE INJ 40 MG/4 ML VIAL IV ONE (10:02)
[2016-06-07] MEDS: SODIUM CHLORIDE 0.9% (FLUSH) 10 ML SYG IV PRN (10:13)
--- NOTE | 2016-06-07 15:00 | PN ---
DATE: 06/07/16 SUPERVISING PHYSICIAN: Cuco Sharp M.D. SUBJECTIVE: The patient is sitting in the bedside chair listening to books on tape. She says she does not have any shortness of breath but continues to have some weakness. Again discussed fluid restrictions as her sodium continues to be low. OBJECTIVE: VITAL SIGNS: T max 97.8, pulse 60, blood pressure 110/62, respirations 20, O2 sat 96% on room air. I's and O's show a positive balance of 207 with 957 in, 750 out. She has had a couple of bowel movements. Weight is 97.0 kg. CHEST: Clear to auscultation. HEART: Regular rate and rhythm. ABDOMEN: Obese but soft, non-tender. Positive bowel sounds. EXTREMITIES: No clubbing, cyanosis or edema. NEUROLOGIC: She is alert and oriented times three. LABORATORY: Hemoglobin and hematocrit are stable at 10.7 and 32.8, platelet count 182,000. White count is within normal limits at 7.4. Differential shows to be within normal limits. Chemistries show potassium 3.6 with sodium again decreased to 125, BUN 16, creatinine 0.8 with serum osmolality 251, glucose 75. ASSESSMENT: 1. Hyponatremia, persistent with the patient's baseline being 128 to 130. Continue with fluid restrictions and medication regimen modification. The patient is on Hydrochlorothiazide which could be contributing to the persistent low sodium. 2. Hypokalemia, resolved. 3. Extreme weakness likely secondary to number 1. 4. Legally blind. 5. Congestive heart failure with a diastolic etiology with ejection fraction of 55% in December 2014. 6. Hypertension. 7. Chronic obstructive pulmonary disease, stable. PLAN: The patient was set to be discharged today, however it was noted again her sodium is persistently low and will attempt to improve today with 3% hypertonic saline 300 mL over 6 hours with an additional dose of Lasix 40 mg IV and holding her Hydrochlorothiazide. Will plan to recheck sodium in the morning. If improved, plan to discharge the patient to [facility] where she will need physical therapy. Will also continue with good pulmonary hygiene , frequent ambulation and strict fluid restrictions. Will also instruct Dietary to provide the patient with a dry tray to allow nurses to provide all oral substances as needed. Until discharge, will continue to monitor the patient closely and treat appropriately. Dr. Sharp is the collaborating physician available for consultation. #[id number] [facility]
[2016-06-07] MEDS ORDERED: PANTOPRAZOLE SODIUM TAB 40 MG PO SCH (21:00)
[2016-06-07] MEDS: MONTELUKAST SODIUM 10 MG TAB PO SCH (21:04)
[2016-06-07] MEDS: traMADol HCL 50 MG TAB PO PRN (21:04)
[2016-06-07] MEDS: ENOXAPARIN SODIUM 40 MG/0.4 ML SYG SUBCU SCH (21:05)
[2016-06-08 06:05] VITALS: O2SAT 95
[2016-06-08] MEDS: INSULIN LISPRO 100 UNITS/ML PEN SUBCU SCH ×2 (07:27→11:22)
[2016-06-08] MEDS: metFORMIN HCL 500 MG TAB PO SCH (07:27)
[2016-06-08] MEDS: PROPRANOLOL HCL 20 MG TAB PO SCH (08:48)
[2016-06-08] MEDS: TOLTERODINE TARTRATE ER 4 MG CAP PO SCH (08:48)
[2016-06-08] MEDS: PARoxetine HCL 20 MG TAB PO SCH (08:49)
[2016-06-08] MEDS: INSULIN DEGLUDEC 34 UNIT SC SCH (08:49)
[2016-06-08] MEDS: FUROSEMIDE 40 MG TAB PO SCH (08:49)
[2016-06-08] MEDS: DONEPEZIL HCL 5 MG TAB PO SCH (08:49)
[2016-06-08] MEDS: LISINOPRIL 10 MG TAB PO SCH (08:50)
[2016-06-08] MEDS: NYSTATIN POWDER 15GM BTTL TOP SCH ×2 (08:51→12:58)
[2016-06-08 10:58] VITALS: BP 118/72; TEMP 98
--- NOTE | 2016-06-10 08:53 | DS ---
SUPERVISING PHYSICIAN: Cuco Sharp MD DISCHARGE DIAGNOSIS: 1. Hyponatremia with the patient having a baseline of 120 to 130. Initial correction with fluid restrictions and modification of medication regimen to include stopping of her hydrochlorothiazide, which was most likely contributing to her persistent low sodium. 2. Hypokalemia, resolved after therapy. 3. Extreme weakness, likely secondary to severe hyponatremia. 4. Legally blind. 5. Congestive heart failure with diastolic etiology and ejection fraction of 55 % as noted in December of 2014. 6. Hypertension, stable. 7. Chronic obstructive pulmonary disease, stable. HISTORY OF PRESENT ILLNESS: Ms. Bowman is an 80-year-old female presented to the Emergency Room initially on 06/04/16 with complaints of generalized weakness and chronic back pain. She lives at home alone. On date of admission, she could not even get up to get to the bathroom by herself. She is legally blind and she hurts all over, which puts her at high risk for self assist injuries as she is unable to fully use her walker. She noted that she could not even get her walker to the bathroom and was completely unable to take care of herself. In weeks previous, she was actually admitted to the hospital for a hypoglycemic event. She has been admitted to the hospital for multiple falls over the past year. In the Emergency Room, initial laboratories showed her to have a sodium 126, hemoglobin 11.2, hematocrit 34.6. Urinalysis was within normal limits. Radiograph studies per radiology interpretation showed her chest x-ray shows cardiomegaly without evidence of congestive heart failure and no cardiac pulmonary pathology. The patient was admitted to the hospital for further treatment and evaluation in regards to severe hyponatremia and severe weakness. LABORATORY: Initial white count on admission was 7.9 and at time of discharge 8.7. Hematocrit and hemoglobin stayed stable through admission and at time of discharge was hemoglobin 10.6 and hematocrit 32.5. Platelet count 174,000, differential within normal limits. Chemistries on admission showed initial sodium 126 which did improve with some IV therapy and diuresis, however, it dropped on date of intended discharge to 125 and after further treatment with hypertonic saline prior to discharge, it improved to 130. Other electrolytes remained within normal limits and at time of discharge BUN was 17, creatinine 0.78. Glucose had ranged from 67 to 169. Calcium on discharge was 9.1. Liver functions showed a mildly elevated AST of 44, mildly elevated direct bilirubin 0.3, total bilirubin 0.8. All other liver functions were within normal limits. Troponin 0.02. BNP was slightly elevated at 140. Initial urinalysis was within normal limits. MICROBIOLOGY: No specimens submitted. RADIOLOGY: Chest x-ray in the Emergency Department per radiology interpretation showed cardiomegaly without any evidence of congestive heart failure and no acute cardiopulmonary pathology noted. No additional radiographic studies were obtained during hospitalization. HOSPITAL COURSE: The patient was admitted as noted in history of present illness on 06/04/16 due to severe weakness associated with severe hyponatremia. She was started on treatment with diuresis and IV therapy replacement with normal saline and monitored closely. Her sodium did improve somewhat, however, on the date of intended discharge, the patient's repeat laboratory studies indicated the patient's sodium was lower than what it was when she came in at 125 with serum osmolality of 251 compared to admission of 255. She was fluid restricted. On the date of intended discharge, decision was made to further treat her low sodium with 3% hypertonic saline. She was given 300 mL over six hours as well as an additional Lasix dose of 40 mg by IV. She was also fluid restricted to the extent of dry trays to help assist with preventing fluid overload from oral intake. Prior to discharge after treatment, sodium did improve and at time of discharge, had gone up to 130. The patient felt like she was much better. She was not quite as weak and was felt well enough both physically and clinically that she could be discharge to continue with care at [facility]. PLAN: The patient is discharged on 06/08/16 to return to [facility]. She was taken by the facility van. She had instructions to followup with her primary care provider, Dr. Esquivel, in one to two weeks. She was instructed as well as [facility] to call Dr. Esquivel's office to establish followup date and time. She was to resume all her medications as instructed prior to admission, however, modifications included discontinuation of Zestoretic and to take only lisinopril 20 mg daily in efforts to hold her hydrochlorothiazide which was felt to be contributing to some of her hyponatremia. She was also encouraged to restrict her fluids to less than 1500 mL in a 24 hour period. She was to return to the hospital if not improving or if her condition was to worsen. At time of discharge, new prescriptions included: 1. Potassium 20 mEq daily. 2. Lisinopril 20 mg daily, #30. All other medications were resumed as prior to admission. At time of discharge , condition was stable. She was discharged to continue with diabetic diet and to increase activity as tolerated and utilize walker when ambulating. Dr. Sharp is the collaborating physician and available for consultation. #[id number] [facility]
== END 2016-06-08 13:53 | DRG 641 ==
LOC: ER 14:31 → MS 21:26 → OBSVTOIN 21:26
PROVIDERS: ADMIT Nurse Practitioner Acute Care; ATTEND Nurse Practitioner Family
DX: E87.1 Hypo-osmolality and hyponatremia (principal); I50.32 Chronic diastolic (congestive) heart failure; T50.2X5A Adverse effect of carbonic-anhydrase inhibitors, benzothiadiazides and other diuretics, initial encounter; R62.7 Adult failure to thrive; E87.6 Hypokalemia; H54.8 Legal blindness, as defined in USA; J44.9 Chronic obstructive pulmonary disease, unspecified; G89.29 Other chronic pain; M54.9 Dorsalgia, unspecified; I11.0 Hypertensive heart disease with heart failure; I25.10 Atherosclerotic heart disease of native coronary artery without angina pectoris; E78.5 Hyperlipidemia, unspecified; M15.9 Polyosteoarthritis, unspecified; E11.9 Type 2 diabetes mellitus without complications; D50.9 Iron deficiency anemia, unspecified; E11.51 Type 2 diabetes mellitus with diabetic peripheral angiopathy without gangrene; I25.2 Old myocardial infarction; Z60.2 Problems related to living alone; Z79.84 Long term (current) use of oral hypoglycemic drugs; Z86.73 Personal history of transient ischemic attack (TIA), and cerebral infarction without residual deficits; Z96.659 Presence of unspecified artificial knee joint; Z88.0 Allergy status to penicillin; Z88.8 Allergy status to other drugs, medicaments and biological substances; Z79.82 Long term (current) use of aspirin; Z79.4 Long term (current) use of insulin; Z79.899 Other long term (current) drug therapy; Y92.009 Unspecified place in unspecified non-institutional (private) residence as the place of occurrence of the external cause

== ENCOUNTER → 2016-06-19 | Outpatient (CLI) | payer MEDICARE | END | disposition home or self-care (01) | LOC: GT 08:47 | PROVIDERS: ATTEND Family Medicine | DX: E11.9 Type 2 diabetes mellitus without complications (principal); E87.1 Hypo-osmolality and hyponatremia; E61.8 Deficiency of other specified nutrient elements ==

== ENCOUNTER 2016-07-16 06:48 | Emergency (ER) | payer MEDICARE ==
[2016-07-16] MEDS ORDERED: ACETAMINOPHEN SUPPOSITORY 650 MG PR ONE (07:06)
--- NOTE | 2016-07-16 07:28 | CT ---
EXAM: CT head without contrast. INDICATION: Headache. TECHNIQUE: Contiguous axial CT images of the brain. Intravenous contrast: Absent. DLP 677 mGy-cm. This exam was performed according to our departmental dose-optimization program, which includes automated exposure control, adjustment of the mA and/or kV according to patient size and/or use of iterative reconstruction technique. COMPARISON: None. FINDINGS: Subcutaneous: Unremarkable. No acute intracranial hemorrhage. No midline shift. No mass effect. Ventricles: No hydrocephalus. Feliz-white differentiation preserved. Paranasal sinuses/mastoid air cells: There is an air-fluid level within the right maxillary sinus. Bones/orbits: Visualized portions are unremarkable. IMPRESSION: No CT evidence of acute intracranial hemorrhage. Acute sinusitis Electronically signed by: Parker Hair MD 07/16/2016 7:27 AM CDT
[2016-07-16] MEDS ORDERED: SODIUM CHLORIDE 0.9% 1000ML 1,000 ML IVS ONE (07:34)
--- NOTE | 2016-07-16 07:49 | RAD ---
EXAM DESCRIPTION: Chest,1 View CLINICAL HISTORY: seizure COMPARISON: June 04, 2016 and June 10, 2015 FINDINGS: The heart is enlarged, stable or slightly increased from the prior study. Mediastinal contours are otherwise unremarkable. Again seen is some irregular calcification projecting over the left lung base which may be of cardiac origin, stable from prior exams. There is no airspace consolidation or pleural effusion. There is no pneumothorax or acute fracture. IMPRESSION: Cardiomegaly, but no acute intrathoracic abnormality. Cardiac wall calcification, unchanged from May,. This may be related to remote infarct. Electronically signed by: Favian Wolf MD 07/16/2016 7:48 AM CDT
[2016-07-16] MEDS ORDERED: SOD CHL 3% *HYPERTONIC* 500ML 200 ML IVS ONE (08:03)
[2016-07-16] MEDS ORDERED: cefTRIAXone SODIUM 1 GM in SODIUM CHL 0.9% 50ML MIN-BAG+ 50 ML IVPB ONE (08:23)
[2016-07-16 09:19] VITALS: TEMP 99.9
[2016-07-16] MEDS ORDERED: cefTRIAXone SODIUM 1 GM VIAL ONE (10:03)
[2016-07-16] MEDS ORDERED: SODIUM CHL 0.9% 50ML MIN-BAG+ 50 ML IVPB ONE (10:04)
[2016-07-16] MEDS ORDERED: ACYCLOVIR SODIUM INJECTION 1,000 MG in SODIUM CHLORIDE 0.9% 250ML 250 ML IVPB ONE (11:38)
[2016-07-16] MEDS ORDERED: SODIUM CHLORIDE 0.9% 250ML 250 ML ONE (11:49)
[2016-07-16] MEDS ORDERED: ACYCLOVIR SODIUM INJECTION 500 MG VIAL ONE (11:50)
--- NOTE | 2016-07-16 12:43 | ED.PDOC ---
History of Present Illness - General Chief Complaint: Neuro Symptoms/Deficits Stated Complaint: terry Time Seen by Provider: 07/16/16 07:04 Source: patient, EMS notes reviewed, long term records Exam Limitations: clinical condition - History of Present Illness Initial Comments: the patient is an 81-year-old female presenting from a long-term care facility due to altered mental status and seizure activity. The first seizure was witnessed this morning by staff shortly after they found that she was significantly confused. Glucose done at the time was within normal limits. She does have a history of altered mental status and seizure activity with hypoglycemic episodes in the past. She also has a history of strokes or TIAs in the past. She does have a history of atrial fibrillation and is no longer on anticoagulation due to fall risk and iron deficiency anemia. She is an insulin-dependent diabetic. Staff had apparently noted that yesterday she was definitely weaker than normal and had to be helped with her transfers. She was also showing some mild confusion at that time. 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 She is also able to normally use her upper extremities equally. Staff witnessed one to 2 generalized tonic- clonic seizures at the long-term care facility and EMS witnessed 2 more. It does appear that she did bite her tongue based on some bruising there. She was given Valium by EMS and arrived here postictal and mildly sedated from the Valium. Gag reflex was strong initially. The patient did have some spontaneous movement of all 4 extremities but it was approximately 2 hours before the patient was awake enough to get something of a decent neurological exam. the patient has recently been on Levaquin for a respiratory tract infection. She has had some fevers over the last few days. Now that the patient is a little more awake she reports that she is hurting all over. She does have a stage I decubitus area that is of some discomfort for her. She is able to give us some of her medical history but is also erroneous on some of it. She is unable to look down or to the right. It is difficult to get her to turn her head to the right. She will move the right upper and bilateral lower extremities to command though strength in these extremities appears to be 4 over 5 at best. Her left upper extremity appears to be in more of an extensor posturing. She will not squeeze her fingers on that side. She does know her name. She does know that she is in [place]. She does not know the date. She is fairly drowsy. She reports generalized body aches including a mild headache. She doesn't think her vision is change from baseline but is unsure. The last time we can say that the patient was truly mentating normally was yesterday morning based on care facility staff. Timing/Duration: unsure Severity: severe Improving Factors: nothing Worsening Factors: nothing Associated Symptoms: malaise, weakness Allergies/Adverse Reactions: Allergies Penicillins Allergy (Unknown, Verified 07/16/16 08:04) Statins Allergy (Unknown, Verified 07/16/16 08:04) Home Medications: Ambulatory Orders Donepezil HCl [Aricept] 1 tab PO BEDTIME 05/01/13 Furosemide [Lasix] 40 mg PO BID #0 05/05/13 Albuterol Sulfate Nebs [Proventil Nebs] 2.5 mg INH QID PRN 06/10/15 Aspirin 325 mg PO QD 06/10/15 B-Complex W/Biotin & Folic Aci [Super B-Complex] 1 cap PO DAILY 06/10/15 Magnesium Hydroxide [Milk Of Magnesia] 30 ml PO DAILY PRN 06/10/15 Metformin HCl 1,000 mg PO BIDFD 06/10/15 Montelukast Sodium [Singulair] 10 mg PO BEDTIME 06/10/15 Brea-3 Fatty Acids [Brea-3 Fish Oil 1200 mg] 1 cap PO DAILY 06/10/15 Solifenacin Succinate [Vesicare] 10 mg PO DAILY 06/10/15 Insulin Aspart [Novolog] 0 unit SC BID PRN 01/25/16 Tiotropium Lupton-Olodaterol [Stiolto Respimat 2.5-2.5 Mcg/Act] 2 aer IN DAILY 01/25/16 Cholecalciferol [Vitamin D3] 2,000 unit PO DAILY 02/25/16 Multiple Vitamins W/ Minerals [Womens One Daily] 1 tab PO DAILY 02/25/16 Vitamin C 500 mg PO DAILY 02/25/16 diphenhydrAMINE HCL [Benadryl] 25 mg PO PRN 02/25/16 Calcium 1,200 mg PO DAILY 05/29/16 Esomeprazole Magnesium [Nexium] 40 mg PO DAILY 05/29/16 Propranolol HCl 10 mg PO DAILY 05/29/16 Nystatin Powder 100,000 units TOP BID PRN 06/04/16 Lisinopril [Prinivil] 20 mg PO DAILY #30 tab 06/08/16 Potassium Chloride [K-Tab] 20 meq PO DAILY #30 tab 06/08/16 Tramadol HCl 50 mg PO Q4H #30 tab 06/08/16 Benzonatate Perles [Tessalon Perles] 200 mg PO TID PRN 07/16/16 Insulin Degludec [Tresiba Flextouch] 30 unit SC QAM 07/16/16 levoFLOXacin [Levaquin] 500 mg PO DAILY 07/16/16 Review of Systems - Review of Systems Constitutional: States: fever, malaise, weakness EENTM: States: see HPI Respiratory: States: no symptoms reported, cough - over the last week Cardiology: States: no symptoms reported Gastrointestinal/Abdominal: States: no symptoms reported Genitourinary: States: no symptoms reported Musculoskeletal: States: see HPI, other - generalized myalgias Skin: States: see HPI Neurological: States: see HPI All other Systems: No Change from Baseline Past Medical History (General) - Patient Medical History Hx Seizures: No Hx Stroke: No Hx Dementia: No Hx Asthma: Yes Hx of COPD: Yes Hx Cardiac Disorders: Yes - [place] Hx Congestive Heart Failure: Yes Hx Pacemaker: No Hx Hypertension: Yes Hx Thyroid Disease: No Hx Diabetes: Yes Hx Cancer: No Hx of HIV: No Hx Hepatitis C: No Hx MRSA: No Surgical History: other - Vaccination History Hx Tetanus, Diphtheria Vaccination: No Hx Influenza Vaccination: Yes Hx Pneumococcal Vaccination: Yes - Social History Hx Tobacco Use: No Hx Chewing Tobacco Use: No Hx Alcohol Use: No Hx Substance Use: No Hx Substance Use Treatment: No Hx Depression: No Hx Physical Abuse: No Hx Emotional Abuse: No - Activities of Daily Living Custodial/Assisted Living (if applicable):: [place] - Female History Patient : No Family Medical History - Family History Father Living Status: Hx Family Hypertension: Yes Hx Family Diabetes: Yes Daughter Living Status: Still Living Hx Family Asthma: Yes Hx Family Stroke: Yes Hx Cardiac Disease: - pt does not know Hx Family Diabetes: - Pt does not know Hx Family Cancer: Yes - breast Mother Family History: Unknown Living Status: Age at (years of age): 66 Cause of : CAD Hx Family Hypertension: Yes Physical Exam - Physical Exam General Appearance: Lethargic - initially Eye Exam: bilateral other - see history of present illness Ears, Nose, Throat: other - mucous membranes are fairly dry. Gag reflex is present though possibly a little weaker than normal Neck: supple, other - the patient has her head turned towards the left and will not turn to the right Respiratory: chest non-tender, lungs clear, normal breath sounds, no respiratory distress, no accessory muscle use Cardiovascular/Chest: normal peripheral pulses, no edema, other - atrial fibrillation on EKG but rate controlled Peripheral Pulses: radial,right: 2+, radial,left: 2+, dorsalis pedis,right: 2+, dorsalis pedis,left: 2+ Gastrointestinal/Abdominal: non tender, soft Rectal Exam: deferred - the patient does have a stage I decubitus on sacrum Back Exam: normal inspection, no CVA tenderness Extremity: non-tender, no pedal edema, no calf tenderness, normal capillary refill, other - see history of present illness Neurologic: other - initially fairly obtunded given the postictal state and the benzodiazepines. See history of present illness Skin Exam: normal color - with the exception of a stage I decubitus posteriorly Comments: Vital Signs - 8 hr 07/16/16 07/16/16 07/16/16 07:01 07:41 08:20 Temperature 100.2 F H Pulse Rate [ 85 80 85 Left] Pulse Rate [ 81 right] Respiratory 20 16 16 Rate Blood Pressure 118/48 121/54 144/72 [right] O2 Sat by Pulse 98 99 99 Oximetry 07/16/16 07/16/16 07/16/16 09:00 10:00 12:12 Temperature 99.9 F H Pulse Rate [ 81 96 H 80 Left] Pulse Rate [ right] Respiratory 16 16 16 Rate Blood Pressure 138/61 149/68 124/55 [right] O2 Sat by Pulse 100 100 98 Oximetry Progress - Progress Progress: 07/16/16 12:48 the patient is a 81-year-old female who presented to the ER by EMS due to altered mental status and seizure activity. The patient does appear to have focal neurological deficits that are residual. CT scan of the head shows no evidence definitively of an acute stroke. no definitive timeframe can be established so the patient is not a candidate for lytic therapy. There is some sinusitis. Lumbar puncture does not look concerning at this time at least for bacterial meningitis. The patient has not had any hypoglycemia to indicate that it has been the cause of the seizure activity. Clinically this appears most likely to be due to a small stroke given her history of atrial fibrillation and no anticoagulation versus encephalitis possibly from a viral etiology. CSF studies are being sent out. Additionally the patient does have some hyponatremia. She has had hyponatremia in the past and typically hovers around 130-133. She is receiving a small amount of 3% hypertonic saline and will need a repeat sodium level in the near future. She will need to be monitored for hypoglycemia. She does appear to have a urinary tract infection and has received a dose of IV Rocephin here. We have not given any further Levaquin as this may potentiate the seizure activity. She did also tested negative for flu. We are transferring for higher level of care and neurological evaluation. No further seizure activity since her arrival here. Lumbar puncture was performed by anesthesia. See their notes for details of the procedure. It was a frankly bloody tap, and difficult due to degenerative changes of her lumbar spine. - Results/Orders Results/Orders: Laboratory Tests 07/16/16 07/16/16 07/16/16 06:57 06:57 07:10 WBC 15.2 H RBC 4.07 L Hgb 10.6 L Hct 33.8 L MCV 83.1 MCH 26.0 L MCHC 31.5 L RDW 17.6 H Plt Count 394 MPV 7.4 Absolute Neuts (auto) 12.20 H Absolute Lymphs (auto) 2.10 Absolute Monos (auto) 0.80 Absolute Eos (auto) 0.00 Absolute Basos (auto) 0.10 Neutrophils % 80.6 H Lymphocytes % 13.9 L Monocytes % 5.1 Eosinophils % 0.0 L Basophils % 0.4 Sodium 127 L Potassium 4.0 Chloride 84 L Carbon Dioxide 27 Anion Gap 20.0 H BUN 13 Creatinine 1.14 BUN/Creatinine Ratio 11.4 Random Glucose 97 Serum Osmolality 255.3 L Lactic Acid 4.5 H* Calcium 8.9 Total Bilirubin 1.0 AST 26 ALT 10 Alkaline Phosphatase 83 Serum Total Protein 7.2 Albumin 3.3 Globulin 3.9 H Albumin/Globulin Ratio 0.8 L Urine Color Urine Appearance Urine pH Ur Specific [place] Urine Protein Urine Glucose (UA) Urine Ketones Urine Blood Urine Nitrite Urine Bilirubin Urine Urobilinogen Ur Leukocyte Esterase Urine RBC Urine WBC Ur Epithelial Cells Urine Bacteria CSF Appearance CSF Color CSF WBC CSF RBC CSF Neutrophils CSF Lymphocytes CSF Glucose CSF Total Protein 07/16/16 07/16/16 07/16/16 07:45 11:35 11:39 WBC RBC Hgb Hct MCV MCH MCHC RDW Plt Count MPV Absolute Neuts (auto) Absolute Lymphs (auto) Absolute Monos (auto) Absolute Eos (auto) Absolute Basos (auto) Neutrophils % Lymphocytes % Monocytes % Eosinophils % Basophils % Sodium Potassium Chloride Carbon Dioxide Anion Gap BUN Creatinine BUN/Creatinine Ratio Random Glucose Serum Osmolality Lactic Acid Calcium Total Bilirubin AST ALT Alkaline Phosphatase Serum Total Protein Albumin Globulin Albumin/Globulin Ratio Urine Color Yellow Urine Appearance Cloudy Urine pH 6.0 Ur Specific [place] 1.015 Urine Protein 100 H Urine Glucose (UA) Negative Urine Ketones Negative Urine Blood Small H Urine Nitrite Negative Urine Bilirubin Negative Urine Urobilinogen 0.2 Ur Leukocyte Esterase Moderate H Urine RBC 5-10 H Urine WBC 20-30 H Ur Epithelial Cells 0 Urine Bacteria 1+ CSF Appearance Clear CSF Color Colorless CSF WBC 46 H* CSF RBC 86 CSF Neutrophils 92.0 CSF Lymphocytes 8.0 CSF Glucose 71 H CSF Total Protein 07/16/16 11:39 WBC RBC Hgb Hct MCV MCH MCHC RDW Plt Count MPV Absolute Neuts (auto) Absolute Lymphs (auto) Absolute Monos (auto) Absolute Eos (auto) Absolute Basos (auto) Neutrophils % Lymphocytes % Monocytes % Eosinophils % Basophils % Sodium Potassium Chloride Carbon Dioxide Anion Gap BUN Creatinine BUN/Creatinine Ratio Random Glucose Serum Osmolality Lactic Acid Calcium Total Bilirubin AST ALT Alkaline Phosphatase Serum Total Protein Albumin Globulin Albumin/Globulin Ratio Urine Color Urine Appearance Urine pH Ur Specific [place] Urine Protein Urine Glucose (UA) Urine Ketones Urine Blood Urine Nitrite Urine Bilirubin Urine Urobilinogen Ur Leukocyte Esterase Urine RBC Urine WBC Ur Epithelial Cells Urine Bacteria CSF Appearance CSF Color CSF WBC CSF RBC CSF Neutrophils CSF Lymphocytes CSF Glucose CSF Total Protein 49.0 H* CSF testing for HSV, VZV, adenovirus, enterovirus and specifically West Nile virus are being sent out. Gram stain is still pending at this time. Bacterial culture is still pending at this time. head CT is negative for any evidence of acute stroke. No evidence of bleed. No evidence of overt hydrocephalus. No mass effect. Chest x-ray appears benign. EKG shows atrial fibrillation with good rate control. She does have a right bundle branch block. EKG is consistent with EKG obtained one month ago. Departure - Departure Clinical Impression: Seizure, Delirium, Neurological deficit present Disposition: Transfer to Hospital Referrals: Ethan Esquivel MD [Primary Care Provider] - 1-2 Weeks Home Medications: Ambulatory Orders Donepezil HCl [Aricept] 1 tab PO BEDTIME 05/01/13 Furosemide [Lasix] 40 mg PO BID #0 05/05/13 Albuterol Sulfate Nebs [Proventil Nebs] 2.5 mg INH QID PRN 06/10/15 Aspirin 325 mg PO QD 06/10/15 B-Complex W/Biotin & Folic Aci [Super B-Complex] 1 cap PO DAILY 06/10/15 Magnesium Hydroxide [Milk Of Magnesia] 30 ml PO DAILY PRN 06/10/15 Metformin HCl 1,000 mg PO BIDFD 06/10/15 Montelukast Sodium [Singulair] 10 mg PO BEDTIME 06/10/15 Brea-3 Fatty Acids [Brea-3 Fish Oil 1200 mg] 1 cap PO DAILY 06/10/15 Solifenacin Succinate [Vesicare] 10 mg PO DAILY 06/10/15 Insulin Aspart [Novolog] 0 unit SC BID PRN 01/25/16 Tiotropium Lupton-Olodaterol [Stiolto Respimat 2.5-2.5 Mcg/Act] 2 aer IN DAILY 01/25/16 Cholecalciferol [Vitamin D3] 2,000 unit PO DAILY 02/25/16 Multiple Vitamins W/ Minerals [Womens One Daily] 1 tab PO DAILY 02/25/16 Vitamin C 500 mg PO DAILY 02/25/16 diphenhydrAMINE HCL [Benadryl] 25 mg PO PRN 02/25/16 Calcium 1,200 mg PO DAILY 05/29/16 Esomeprazole Magnesium [Nexium] 40 mg PO DAILY 05/29/16 Propranolol HCl 10 mg PO DAILY 05/29/16 Nystatin Powder 100,000 units TOP BID PRN 06/04/16 Lisinopril [Prinivil] 20 mg PO DAILY #30 tab 06/08/16 Potassium Chloride [K-Tab] 20 meq PO DAILY #30 tab 06/08/16 Tramadol HCl 50 mg PO Q4H #30 tab 06/08/16 Benzonatate Perles [Tessalon Perles] 200 mg PO TID PRN 07/16/16 Insulin Degludec [Tresiba Flextouch] 30 unit SC QAM 07/16/16 levoFLOXacin [Levaquin] 500 mg PO DAILY 07/16/16 Transfer to Outside Facility - Transfer Information Accepting Provider:: dr priya hay Accepting Facility: [facility] Reason for Transfer: required specialist not available
[2016-07-16 13:22] VITALS: BP 123/64; O2SAT 97
== END 2016-07-16 13:22 | disposition short-term general hospital (02) ==
LOC: ER 06:48
DX: R56.9 Unspecified convulsions (principal); R41.0 Disorientation, unspecified; R29.818 Other symptoms and signs involving the nervous system; I45.10 Unspecified right bundle-branch block; I48.91 Unspecified atrial fibrillation; N39.0 Urinary tract infection, site not specified; E87.1 Hypo-osmolality and hyponatremia; J44.9 Chronic obstructive pulmonary disease, unspecified; I11.0 Hypertensive heart disease with heart failure; I50.9 Heart failure, unspecified; I25.2 Old myocardial infarction; E11.9 Type 2 diabetes mellitus without complications; Z79.899 Other long term (current) drug therapy; Z79.4 Long term (current) use of insulin; Z79.82 Long term (current) use of aspirin
CPT/HCPCS: 36415; 70450; 71010; 80053; 81001; 82945; 83605; 84157; 85025; 86403; 87040; 87070; 87086; 87088; 87186; 87205; 87502; 89051; 93005; J0133; J0696; J7030; J7050; J7799